=== PATIENT | female | born 1995 | race Caucasian/White ===

== ENCOUNTER 2024-10-23 05:38 | Inpatient (IN) ==
--- NOTE | 2024-10-09 11:23 | PAT Medication Instructions ---
Medication Instructions Date of Service October 09, 2024 Home Medications FVI-ykpm-IN-omega 3 fatty no.1 27 mg-1 mg-300 mg capsule 1 cap PO DAILY cetirizine 10 mg tablet (Zyrtec) 10 mg PO UD PRN allergies clindamycin phosphate 1 % lotion 1 applic topical UD PRN HS STOP taking 24 hours before surgery clindamycin phosphate 1 % lotion 1 applic topical UD PRN HS DO NOT take the morning of surgery BDA-mxow-PF-omega 3 fatty no.1 27 mg-1 mg-300 mg capsule 1 cap PO DAILY cetirizine 10 mg tablet (Zyrtec) 10 mg PO UD PRN allergies MORNING OF SURGERY: NOTHING TO EAT OR DRINK AFTER MIDNIGHT Other Notes If you have any questions please call us at [phone] or [phone] or [phone] or [phone]
--- NOTE | 2024-10-16 11:39 | Anesthesiology Consultation ---
Date of Service October 16, 2024 Assessment & Plan (1) Encounter for pre-operative examination: Exam & Advise: patient seen at [facility] 10/16/24. Patient presents today referred by OB for history of above anesthesia reaction and h/o thoracic spinal fusion T4- T12. Anesthesia and operative records are scanned to chart. Well-healed scar ends well above L4. Patient educated on spinal and we discussed previous anesthesia reaction which can occur in post-op, is not uncommon aftere c- sections. She expressed appreciation for discussion and denied questions or concerns. Case discussed in detail with Dr. Willis who advised nothing further is needed regarding reported post-op vigorous shaking. All questions answered. Johanna ent seems satisfied. Chart Review Chart Review: Acceptable Risk for Surgery and Patient seen in Pre Admission Testing Teaching & Discussion Pre-Anesthesia Teaching/Discussion Notes: Instructed NPO after midnight before surgery, except medications with 15 cc of water. Medication instructions provided according to the [facility] guidelines. History Surgery Operation Date: 10/23/24 07:30 Proposed Procedures p Section (Delivery of Baby Through Abdominal Incision) - Sahil Gracia MD Height/Weight Height: 5 ft 7 in Weight: 157.85 kg Allergies Allergy/AdvReac Type Severity Reaction Status Date / Time No Known Allergies Allergy Verified 10/16/24 10:01 Medications Home Medications Medication Instructions Recorded Confirmed Last Taken NZE-wtcr-CF-omega 3 fatty no.1 27 1 cap PO DAILY 04/01/24 10/16/24 09/15/24 mg-1 mg-300 mg capsule cetirizine 10 mg tablet (Zyrtec) 10 mg PO UD PRN allergies 10/09/24 10/16/24 Unknown clindamycin phosphate 1 % lotion 1 applic topical UD PRN HS 10/09/24 10/16/24 Unknown Past Medical History Medical History (Updated 10/20/24 @ 08:26 by Wen Joiner MD, FACOG) Bicornate uterus Enlarged thyroid monitored yearly Gestational HTN Hidradenitis suppurativa History of anesthesia reaction following T4-T12 fusion in 2019: vigorous shaking upon waking up-denies any alteration of consciousness-states was told was not concerning, patient personally denies concerns regarding this for upcoming procedure History of recurrent UTI (urinary tract infection) childhood/resolved. History of scoliosis hx sx intervention Hx of migraines Patient denies h/o stroke, seizures, heart attack, heart failure, DM, blood clots/DVTs or blood transfusions. Exercise / Class Metabolic Activity II 4-5 Yardwork/Stairs/Walk up hill (shortness of breath with one flight of stairs during , denies chest discomfort-denies change or worsening) Past Family History Family History Grandfather (Paternal) Colorectal cancer Mother Thyroid cancer Hypertension Grandmother (Paternal) Myocardial infarction Grandfather (Maternal) Myocardial infarction Grandmother (Maternal) Hypertension Denies family history of Ovarian cancer Prostate cancer Breast cancer Past Surgical History Surgical History S/P spinal fusion (08/2018) T4-T12, [facility]. Past Anesthesia History No Family Hx of Anesthesia Complications History of PONV No Hx of PONV and Hx of Motion Sickness Social History Smoking Status: Never smoker Do You Dip or Chew Tobacco: No Hx Alcohol Use: Yes (hx social only / not in ) Hx Substance Use: No substance use type: does not use Review of Systems Snoring, denies witnessed apneas. Patient denies chest pain, reflux, fever, chills, cough, wheezing, or palpitations. Physical Exam Vital Signs Vitals BP 130/82 P 88 TEMP 98.7 SP02 97% on RA RESP 18 Physical Patient resting comfortably in chair in no acute distress, alert and oriented, responding appropriately throughout visit Full cervical extension range of motion without pain TMD 3.5 finger breadths Mallampati Score 3 Dentition: intact, denies chipped or loose teeth, caps/crowns, implants or bridges Lungs: normal respiratory effort. Good air movement, clear throughout to auscultation, no adventitious breath sounds Cardiac: regular rate and rhythm, no murmurs noted Carotid arteries: negative bruit bilat Musculoskeletal: well healed linear surgical scar in thoracic region; nontender over spinous processes and paraspinal muscles Lab Results Anesthesia Preop Results Results Anesthesia Widget: WBC 8.32 K/ul (4.8-10.8) 10/16/24 Hgb 13.5 g/dl (12.0-16.0) 10/16/24 Hct 38.8 % (37.0-47.0) 10/16/24 Plt 172 K/uL (130-400) 10/16/24 Na 136 mmol/L (136-145) 10/16/24 K 4.0 mmol/L (3.5-5.1) 10/16/24 Cl 106 mmol/L (98-107) 10/16/24 CO2 23 mmol/L (21-32) 10/16/24 BUN 6 mg/dl (6-23) 10/16/24 Creat 0.47 mg/dl (0.6-1.2) L 10/16/24 Glucose Level 80 mg/dl (70-99(Fasting)) 10/16/24
[2024-10-23] MEDS ORDERED: SODIUM CHLORIDE 0.9% 100 ML IV PRN (05:43)
[2024-10-23 06:00] LABS: Hematocrit (blood only) 40.8 % (37.0-47.0); Hemoglobin 14.1 g/dl (12.0-16.0); Mean Corpuscular Hemoglobin 30.3 pg (25.0-34.0); Mean Corpuscular Volume 87.7 fL (80.0-100.0); Platelet Count 187 K/uL (130-400); RDW Standard Deviation 39.6 fL (36.4-46.3); Red Blood Count 4.65 M/uL (4.20-5.40); White Blood Count 8.33 K/ul (4.8-10.8)
[2024-10-23] MEDS: LACTATED RINGER'S 1,000 ML IV SCH (06:00)
[2024-10-23] MEDS ORDERED: LACTATED RINGER'S 1,000 ML IV SCH ×2 (06:45→11:30)
[2024-10-23] MEDS: ACETAMINOPHEN 500 MG TAB PO SCH (08:01)
--- NOTE | 2024-10-23 08:36 | History & Physical Report ---
Date of Service October 23, 2024 Assessment & Plan (1) Mild preeclampsia: Plan: Anahi is a 28yo at 37w5d GA. Presents for pLTCS for breech and preeclampsia. Consents reviewed and signed yesterday. (2) Breech presentation: (3) 37 weeks gestation of : (4) Supervision of normal first : Admission and Anticipated Discharge Date Admission Date: October 23, 2024 History of Present Illness Primary Care Provider: Luan Rudolph Anahi is a 28yo at 37w5d presents for scheduled pLTCS for breach with preeclampsia without severe features. Bicornuate Uterus *Cx length US Q2wks 16-24wks *Growth US Q4wks @ 28wks. Hx spinal fusion 2018 - anesthesia consult requested 09/26 Obesity (BMI 40 and higher @ beginning of )-->51 *Growth US @ 32wks *Weekly NSTs @ 34wks *BMI 40 or above offer delivery by EDC. *BMI 50 or greater scheduled detailed/level II anatomy at [facility] (06/20/24 @ [facility] [place]) Inability to view heart x2- Echo [facility] [place] [facility] 08/05/24 Preeclampsia, Gest HTN *Weekly BP chk's with Doc *Weekly CBC, LFTs *Growth US Q4wks *If IUGR: CHEL w/UAD's weekly *Deliver 37-38wks *(If Gestational HTN<28wks bring to [facility]) *Twice weekly NST's @Dx C/S SCHEDULED FOR 10/23/[address] DOLAN AND DR[address] MORAN ASSIST - breech + bicornate uterus Allergies Allergy/AdvReac Type Severity Reaction Status Date / Time No Known Allergies Allergy Verified 10/23/24 05:49 Home Medications Medication Instructions Recorded Confirmed Type DUD-ycue-JF-omega 3 fatty no.1 27 1 cap PO DAILY 04/01/24 10/23/24 History mg-1 mg-300 mg capsule cetirizine 10 mg tablet (Zyrtec) 10 mg PO UD PRN allergies 10/09/24 10/23/24 History clindamycin phosphate 1 % lotion 1 applic topical UD PRN HS 10/09/24 10/23/24 History Patient History Medical History (Updated 10/23/24 @ 08:34 by Sahil Dolan MD) History of anesthesia reaction following T4-T12 fusion in 2019: vigorous shaking upon waking up-denies any alteration of consciousness-states was told was not concerning, patient personally denies concerns regarding this for upcoming procedure History of scoliosis hx sx intervention Hidradenitis suppurativa History of recurrent UTI (urinary tract infection) childhood/resolved. Bicornate uterus Enlarged thyroid monitored yearly Gestational HTN Hx of migraines Surgical History S/P spinal fusion (08/2018) T4-T12, [facility]. Family History Grandfather (Paternal) Colorectal cancer Mother Thyroid cancer Hypertension Grandmother (Paternal) Myocardial infarction Grandfather (Maternal) Myocardial infarction Grandmother (Maternal) Hypertension Denies family history of Ovarian cancer Prostate cancer Breast cancer Social History Smoking Status: Never smoker Second Hand Exposure: No; Do You Dip or Chew Tobacco: No; Hx Alcohol Use: No Hx Substance Use: No Preferred Language: Jamaican Communication Ability: Effective Visual Impairment: No Limitations Process Improvement Consultant Required: No Beliefs That Will Affect Care: None marital status: marital status details: Sahil Pardo (28) [phone] Current Living Situation: Spouse Current Living Situation Comment: lives with spouse, dog current occupational status: employed current occupation: [employer] Other Information That Helps Us Care for You: No Feels Safe at Home: Yes Safety Concerns: Feels Safe At This Time Diet: regular Assistive Devices: Glasses Physical Exam Genitourinary: OB Exam Monitor Tracing: + external FHT monitor used, + external uterine monitor used, + category I and + normal FHT variability Results & Data Vital Signs (Past 12 Hours) Vital Signs Temp Pulse Resp BP 10/23/24 07:15 36.8 C 16 10/23/24 06:13 95 H 137/87 10/23/24 05:53 36.8 C 18 Coding Level of Care Code None Diagnoses Mild pre-eclampsia in third trimester O14.03 Trimester: third trimester Breech presentation, single or unspecified fetus O32.1XX0 Fetus number: single or unspecified fetus 37 weeks gestation of Z3A.37 Encounter for supervision of normal first in third trimester Z34.03 Trimester: third trimester (1) Mild preeclampsia Trimester: third trimester Qualified Code(s): O14.03 - Mild to moderate pre- eclampsia, third trimester (2) Breech presentation Fetus number: single or unspecified fetus Qualified Code(s): O32.1XX0 - Maternal care for breech presentation, not applicable or unspecified (4) Supervision of normal first Trimester: third trimester Qualified Code(s): Z34.03 - Encounter for supervision of normal first , third trimester
[2024-10-23] MEDS ORDERED: PHENYLEPHRINE HCL 25 MG/250 ML NSS IV ONE (08:46)
[2024-10-23] MEDS ORDERED: OXYTOCIN 10 UNITS/ML VIAL ONE (08:46)
[2024-10-23] MEDS ORDERED: ONDANSETRON INJ 2 MG/ML 2 ML VIAL ONE (08:46)
[2024-10-23] MEDS ORDERED: MoRPHine SULFATE PF 1 MG/ML 10 ML AMP/VIAL ONE (08:46)
[2024-10-23] MEDS: CITRIC ACID/SODIUM CITRATE 15 ML UDC PO SCH (10:22)
[2024-10-23] MEDS: ceFAZolin 3000MG 3,000 MG/72.5 ML BAG IV SCH (10:25)
[2024-10-23] MEDS ORDERED: HYDROmorphone INJ 0.5 MG/0.5 ML SYR IV PRN (11:06)
[2024-10-23] MEDS ORDERED: LACTATED RINGER'S 500 ML IV PRN (11:06)
[2024-10-23] MEDS ORDERED: diphenhydrAMINE 50 MG/ML VIAL IV PRN (11:06)
[2024-10-23] MEDS ORDERED: MEPERIDINE HCL 25 MG/ML CARP/VIAL IV PRN (11:06)
[2024-10-23] MEDS ORDERED: PROMETHAZINE 6.25 MG/50.25 ML BAG IV PRN (11:06)
[2024-10-23] MEDS ORDERED: ONDANSETRON INJ 2 MG/ML 2 ML VIAL IV PRN (11:06)
[2024-10-23] MEDS ORDERED: MoRPHine SULFATE 2 MG/ML CARP IV PRN (11:06)
[2024-10-23] MEDS ORDERED: NALOXONE HCL 1 MG in SODIUM CHLORIDE 0.9% 1,000 ML IV PRN (11:06)
[2024-10-23] MEDS ORDERED: NALOXONE HCL 0.4 MG/1 ML VIAL/CARP IV PRN (11:06)
[2024-10-23] MEDS ORDERED: NALBUPHINE HCL INJ 10 MG/ML AMP IV PRN (11:06)
[2024-10-23] MEDS ORDERED: MoRPHine SULFATE PF 1 MG/ML 10 ML AMP/VIAL INT SPINAL ONE (11:06)
[2024-10-23] MEDS ORDERED: NALOXONE HCL 0.08 MG in SYRINGE 1.8 ML IV PRN (11:06)
[2024-10-23] MEDS ORDERED: SODIUM CHLORIDE 0.9% 1,000 ML IV SCH (11:15)
[2024-10-23] MEDS ORDERED: NO NARCOTICS OR SEDATIVES SCH (11:15)
[2024-10-23] MEDS ORDERED: DC INTRASPINAL MORPHINE SCH (11:15)
[2024-10-23] MEDS ORDERED: HYDROCORTISONE ACETATE 25 MG SUPP PR PRN (11:30)
[2024-10-23] MEDS ORDERED: DIPHTHER/TETAN/PERTUS Vaccine (Tdap, Adol/Adult) 0.5mL IM ONE (11:30)
[2024-10-23] MEDS ORDERED: MAGNESIUM HYDROXIDE SUSP 30 ML UDC PO PRN (11:30)
[2024-10-23] MEDS ORDERED: CALCIUM CARBONATE 500 MG CHEWABLE TAB PO PRN (11:30)
[2024-10-23] MEDS ORDERED: BENZOCAINE 20% SPRY 85 APPLN/85 GM CAN EXT PRN (11:30)
[2024-10-23] MEDS ORDERED: SENNA 8.6 MG TAB PO PRN (11:30)
--- NOTE | 2024-10-23 11:34 | Operative Report ---
Post Operative Report Pre & Post Diagnosis Operation Date: 10/23/24 07:30 Pre-Op Diagnosis: 1. 37+ weeks Gestation of . 2. Mild preeclampsia: Plan: 3. Breech Presentation. 4. Scheduled C/S. Post-Op Diagnosis: 1. 37+ weeks Gestation of . 2. Mild preeclampsia: Plan: 3. Breech Presentation. 4. Scheduled C/S. 5. Delivery of Boy via C/S on 10/23/2024 at 1055 in L&D OR. 6. Delivery of Placenta. 7. Cord blood collected. I identified the patient and participated in the time-out.: Yes Procedure Operation Date: 10/23/24 07:30 Actual Procedures Primary low-transverse section- Sahil Gracia MD Surgeon Sahil Gracia MD Injection Mold Tooling Technician nursing staff Quantitative Blood Loss (QBL) See chart Findings Consistent with Post-Op Diagnosis Specimens Placenta Description of Procedure Patient was taken to the operating room after consents were ensured. Upon presentation she was identified. Spinal anesthesia obtained and patient was prepped and draped in the normal sterile fashion. Preprocedure timeout was performed and the case was initiated. A Pfannenstiel incision was made with a knife. This was carried down to underlying fascia with the Bovie and blunt diss ection. Fascia was nicked at the midline with a knife and was extended bluntly and with Lockhart scissors bilaterally. Abdomen was then entered bluntly and placed on stretch to provide adequate room for delivery. was noted to be in breech presentation as suspected and a low transverse uterine incision was made with a knife. The uterine cavity was then entered bluntly and placed on stretch to provide adequate room for delivery. The caudal end of the was delivered with internal rotation of the legs to achieve delivery. This was delivered to the level of the shoulder and internal rotation of the shoulder delivered to the level of the head. The head was then delivered without difficulty and was noted to be vigorous upon delivery. A 30 second delayed cord clamping was initiated. Cord was then double clamped and cut taken to the waiting nursery staff. Cord blood obtained and attention turned to deliver the placenta which delivered intact with gentle uterine massage and cord traction. Uterus was exteriorized and several passes made to remove any remaining membranes with a dry lap. Uterus was wrapped in a wet lap and the hysterotomy was reapproximated with 0 Vicryl in continuous running lock stitch. A second imbricating layer was then performed. The posterior cul-de-sac cleaned of clots and debris's. Hysterotomy was also noted to be hemostatic. Uterus returned to maternal abdomen and right left paracolic gutters cleaned of clots and debris's and hysterotomy reinspected. The muscle, fascia and subcutaneous layers were inspected and noted to be hemostatic. Fascia was reapproximated with 0 Vicryl in continuous running stitch. Subcutaneous layer reapproximated in 2 layers with 2-0 plain. Skin reapproximated 3-0 Vicryl in a subcuticular stitch. Dermabond placed on top. Needle sponge in instrument counts correct at the completion of the case. Both mother and stable in the immediate postdelivery timeframe. No complications noted and blood loss per QBL in chart. I attest to the content of the Intraoperative Record and any orders documented therein. Any exceptions are noted below. OB Procedure Charges 03021
[2024-10-23] MEDS: KETOROLAC 30 MG/ML VIAL IV SCH (12:07)
[2024-10-23] MEDS ORDERED: OXYTOCIN 20 UNITS/LR 1,002 ML IV SCH (12:15)
[2024-10-23] MEDS: SIMETHICONE 80 MG CHEW PO SCH (15:05)
--- NOTE | 2024-10-23 16:17 | Anesthesiology Progress Note ---
Date of Service October 23, 2024 Anesthesia Post Procedure Vital Signs Vital Signs: Temp Pulse Pulse Resp BP BP Pulse Ox 10/23/24 14:30 18 98 10/23/24 14:30 36.6 C 84 18 114/75 98 10/23/24 14:30 10/23/24 13:46 97 H 98 10/23/24 13:45 16 10/23/24 13:45 87 119/71 10/23/24 13:41 90 97 10/23/24 13:36 86 97 10/23/24 13:31 88 96 10/23/24 13:26 95 H 97 10/23/24 13:21 89 95 10/23/24 13:16 83 97 10/23/24 13:15 16 10/23/24 13:15 18 10/23/24 13:11 90 95 10/23/24 13:06 84 96 10/23/24 13:01 89 97 10/23/24 12:56 94 H 96 10/23/24 12:51 91 H 96 10/23/24 12:46 84 123/75 96 10/23/24 12:45 36.6 C 16 10/23/24 12:41 91 H 96 10/23/24 12:36 92 H 95 10/23/24 12:35 16 10/23/24 12:31 85 96 10/23/24 12:26 92 H 96 10/23/24 12:25 16 10/23/24 12:21 85 96 10/23/24 12:16 88 129/84 96 10/23/24 12:15 16 10/23/24 12:11 85 95 10/23/24 12:07 90 127/83 10/23/24 12:06 88 96 10/23/24 12:05 16 10/23/24 12:01 93 H 95 10/23/24 11:56 81 95 10/23/24 11:55 16 10/23/24 11:51 85 97 10/23/24 11:49 93 H 93 10/23/24 11:47 78 118/61 10/23/24 11:46 78 96 10/23/24 11:45 36.6 C 16 10/23/24 11:42 87 93 10/23/24 11:41 84 95 10/23/24 11:36 81 96 10/23/24 11:35 83 133/69 10/23/24 10:25 16 10/23/24 10:25 16 10/23/24 10:00 16 10/23/24 10:00 16 10/23/24 08:30 16 10/23/24 08:30 16 10/23/24 07:15 36.8 C 16 10/23/24 06:13 95 H 137/87 10/23/24 05:53 36.8 C 18 Pulse Ox O2 Del Method O2 Del Method 10/23/24 14:30 10/23/24 14:30 Room Air 10/23/24 14:30 98 Room Air 10/23/24 13:46 10/23/24 13:45 10/23/24 13:45 10/23/24 13:41 10/23/24 13:36 10/23/24 13:31 10/23/24 13:26 10/23/24 13:21 10/23/24 13:16 10/23/24 13:15 10/23/24 13:15 10/23/24 13:11 10/23/24 13:06 10/23/24 13:01 10/23/24 12:56 10/23/24 12:51 10/23/24 12:46 10/23/24 12:45 10/23/24 12:41 10/23/24 12:36 10/23/24 12:35 10/23/24 12:31 10/23/24 12:26 10/23/24 12:25 10/23/24 12:21 10/23/24 12:16 10/23/24 12:15 10/23/24 12:11 10/23/24 12:07 10/23/24 12:06 10/23/24 12:05 10/23/24 12:01 10/23/24 11:56 10/23/24 11:55 10/23/24 11:51 10/23/24 11:49 10/23/24 11:47 10/23/24 11:46 10/23/24 11:45 10/23/24 11:42 10/23/24 11:41 10/23/24 11:36 10/23/24 11:35 10/23/24 10:25 10/23/24 10:25 10/23/24 10:00 10/23/24 10:00 10/23/24 08:30 10/23/24 08:30 10/23/24 07:15 10/23/24 06:13 10/23/24 05:53 Pain Intensity Abdomen: Pain Intensity: 1 Transfer of Care Handoff Completed per policy Notes Mental Status: alert / awake / arousable Nausea / Vomiting: adequately controlled Pain: adequately controlled Airway Patency, RR, SpO2: stable & adequate BP & HR: stable & adequate Hydration State: stable & adequate Neuraxial Anesthesia: was administered and sensory block is resolving Anesthetic Complications: no major complications apparent and Pt Satisfied with anesthetic care
[2024-10-23] MEDS: ACETAMINOPHEN 325 MG TAB PO SCH (17:35)
[2024-10-23] MEDS: DOCUSATE SODIUM 100 MG CAP PO SCH (21:33)
[2024-10-23 23:52] VITALS: RESP 18
[2024-10-24] MEDS ORDERED: HYDROmorphone INJ 0.5 MG/0.5 ML SYR IV PRN (05:06)
[2024-10-24] MEDS ORDERED: diphenhydrAMINE 50 MG/ML VIAL IV PRN (05:06)
[2024-10-24] MEDS ORDERED: PROMETHAZINE 12.5 MG/50.5 ML BAG IV PRN (05:06)
[2024-10-24] MEDS ORDERED: ONDANSETRON INJ 2 MG/ML 2 ML VIAL IV PRN (05:06)
[2024-10-24] MEDS ORDERED: diphenhydrAMINE Capsule 25 MG CAP PO PRN (05:06)
--- NOTE | 2024-10-24 05:40 | Obstetrical Progress Note ---
Date of Service <Davidson Valdez MD - Last Filed: 10/24/24 08:12> October 24, 2024 Assessment & Plan <Davidson Valdez MD - Last Filed: 10/24/24 08:12> (1) care and examination: 28yo post-op day 1 s/p section Fells well today. Vital signs stable Continue post- care Encourage ambulation and Pain controlled with Tylenol, ketorlac Hgb stable Keep incision covered with peripad <Sahil Gracia MD - Last Filed: 10/27/24 11:20> (1) care and examination: Subjective <Davidson Valdez MD - Last Filed: 10/24/24 08:12> 28yo post-op day 1 s/p section Ambulation: Ambulating normally Voiding: No voiding problems Passing Gas:: Yes Diet Tolerance:: regular diet Lochia:: Small Feeding Type:: Current Pain Level: 2/10 controlled with Tylenol, Ketorlac Resting comfortably this AM in NAD. Denies IRAHETA, CP, SOB, N/V/D, LE pain/swelling. Physical Exam <Davidson Valdez MD - Last Filed: 10/24/24 08:12> General: patient resting comfortably, NAD, non-toxic in appearance, answers questions appropriately Skin: warm, dry, intact Heart: S1/S2 heard, regular, no m/r/g Lungs: equal air entry bilaterally, no rales/rhonchi/wheezes Abd: Normoactive BS, soft, NT/ND, uterine fundus firm at umbilicus, incision clean, dry, and intact with peripad cover Ext: warm, no clubbing/cyanosis or edema, Jigna's neg. SCDs on. Neuro: nonfocal, patient AAOx4, speech intact, no facial droop, moving all extremities on command Results & Data <Davidson Valdez MD - Last Filed: 10/24/24 08:12> Vital Signs (Past 12 Hours) Vital Signs Temp Pulse Resp BP Pulse Ox O2 Del Method 10/24/24 04:31 18 98 10/24/24 03:22 18 96 10/24/24 02:53 18 98 10/24/24 02:47 36.9 C 87 18 119/82 100 Room Air 10/24/24 02:37 18 92 10/24/24 02:00 18 93 10/24/24 01:00 18 92 10/23/24 23:52 18 94 10/23/24 23:03 36.9 C 89 16 115/77 97 Room Air 10/23/24 20:02 36.6 C 89 16 119/82 96 Room Air 10/23/24 18:30 18 96 Supervising Physician <Sahil Gracia MD - Last Filed: 10/27/24 11:20> Co-Signing Physician Notes Patient seen with resident and agree with the above findings and plan. Routine post care Resident Activity Tracking <Davidson Valdez MD - Last Filed: 10/24/24 08:12> Resident Involvement: Resident Care Provided Care Provided: OB Delivery
[2024-10-24 07:45] LABS: Hematocrit (blood only) 35.2 % (37.0-47.0); Hemoglobin 12.2 g/dl (12.0-16.0)
[2024-10-24] MEDS: PRENATAL VITAMIN 1 TAB PO SCH (09:00)
[2024-10-24] MEDS: FERROUS SULFATE 325 MG TAB PO SCH (09:00)
[2024-10-24] MEDS: IBUPROFEN 600 MG TAB PO SCH (11:26)
[2024-10-24] MEDS ORDERED: KETOROLAC 30 MG/ML VIAL IV PRN (11:30)
[2024-10-24] MEDS: NYSTATIN POWDER 15GM BTL EXT PRN (19:42)
[2024-10-25 00:51] VITALS: TEMP 98.1; O2SAT 97
--- NOTE | 2024-10-25 07:58 | Obstetrical Progress Note ---
Date of Service <Davidson Valdez MD - Last Filed: 10/25/24 07:58> October 25, 2024 Assessment & Plan <Davidson Valdez MD - Last Filed: 10/25/24 07:58> (1) care and examination: 28yo post-op day 1 s/p section Fells well today. Vital signs stable Continue post- care Encourage ambulation and Pain controlled with Tylenol, ibuprofen, and oxycodone Hgb stable Request nystatin powder to pharmacy D/c home and follow with OB provider in 6 weeks D/c instructions discussed <Indy Humphrey DO - Last Filed: 10/25/24 08:16> (1) care and examination: Subjective <Davidson Valdez MD - Last Filed: 10/25/24 07:58> 28yo post-op day 2 s/p section Ambulation: Ambulating normally Voiding: No voiding problems Passing Gas:: Yes Diet Tolerance:: regular diet Lochia:: Small Feeding Type:: and bottle feeding Current Pain Level: 4/10 controlled with Tylenol, ibuprofen, and oxycodone prn Resting comfortably this AM in NAD. Denies IRAHETA, CP, SOB, N/V/D, LE pain/swelling. Physical Exam <Davidson Valdez MD - Last Filed: 10/25/24 07:58> General: patient resting comfortably, NAD, non-toxic in appearance, answers questions appropriately Skin: warm, dry, intact Heart: S1/S2 heard, regular, no m/r/g Lungs: equal air entry bilaterally, no rales/rhonchi/wheezes Abd: Normoactive BS, soft, NT/ND, uterine fundus firm below umbilicus, incision clean, dry, and intact Ext: warm, no clubbing/cyanosis or edema, Jigna's neg. Neuro: nonfocal, patient AAOx4, speech intact, no facial droop, moving all extremities on command Results & Data <Davidson Valdez MD - Last Filed: 10/25/24 07:58> Vital Signs (Past 12 Hours) Vital Signs Temp Pulse Resp BP Pulse Ox O2 Del Method 10/25/24 00:00 36.7 C 88 18 124/85 97 Room Air Supervising Physician <Indy Humphrey DO - Last Filed: 10/25/24 08:16> Co-Signing Physician Notes Resident Physician Supervision Note: I interviewed and examined the patient. Discussed with Dr. Valdez and agree with findings and plan as documented in the note. Any exceptions or clarifications are listed here: POD#2 doing well. DC home. Rx Percocet #10 to pharmacy. Documented By: Indy Humphrey DO Resident Activity Tracking <Davidson Valdez MD - Last Filed: 10/25/24 07:58> Resident Involvement: Resident Care Provided Care Provided: OB Delivery
[2024-10-25 10:59] VITALS: PULSE 82
[2024-10-25] MEDS: IBUPROFEN 600 MG TAB PO PRN (11:07)
[2024-10-25 11:48] VITALS: BP 129/80
[2024-10-25] MEDS ORDERED: ACETAMINOPHEN 325 MG TAB PO PRN (17:30)
--- NOTE | 2024-10-28 09:14 | Discharge Summary ---
Date of Service October 28, 2024 Admission HPI Per Admitting Provider Anahi davies a 28yo at 37w5d presents for scheduled pLTCS for breach with preeclampsia without severe features. Bicornuate Uterus *Cx length US Q2wks 16-24wks *Growth US Q4wks @ 28wks. Hx spinal fusion 2018 - anesthesia consult requested 09/26 Obesity (BMI 40 and higher @ beginning of )-->51 *Growth US @ 32wks *Weekly NSTs @ 34wks *BMI 40 or above offer delivery by EDC. *BMI 50 or greater scheduled detailed/level II anatomy at [facility] (06/20/24 @ [facility] [place]) Inability to view heart x2- Echo [facility] [place] 08/05/24 Preeclampsia, Gest HTN *Weekly BP chk's with Doc *Weekly CBC, LFTs *Growth US Q4wks *If IUGR: CHEL w/UAD's weekly *Deliver 37-38wks *(If Gestational HTN<28wks bring to [facility]) *Twice weekly NST's @Dx C/S SCHEDULED FOR 10/23/[address] DOLAN AND DR[address] MORAN ASSIST - breech + bicornate uterus Discharge Data Consultations 10/23/24 05:42 Consult Anesthesiology Stat Procedures Performed Operation Date: 10/23/24 07:30 Actual Procedures p Section - Sahil Dolan MD Hospital Course (1) Breech presentation: Presented for a scheduled primary section secondary to breech presentation. Procedure was performed without issue and remained in house for care for day 2. Had no issues while during her course was discharged home in stable condition. Provided both written and verbal discharge instructions. (2) Gestational hypertension: (3) Supervision of normal first : Coding Level of Care Code None Diagnoses Breech presentation, single or unspecified fetus O32.1XX0 Fetus number: single or unspecified fetus Gestational hypertension O13.9 Encounter for supervision of normal first in third trimester Z34.03 Trimester: third trimester
== END 2024-10-25 11:15 | disposition home or self-care (01) | DRG 788 ==
LOC: 4S1 05:38 → EDSTATUS 07:30 → 4E2 14:04
DX: Z37.0 Single live birth; E66.9 Obesity, unspecified; Q51.3 Bicornate uterus; O34.83 Maternal care for other abnormalities of pelvic organs, third trimester; O32.1XX0 Maternal care for breech presentation, not applicable or unspecified; O99.214 Obesity complicating childbirth; O14.04 Mild to moderate pre-eclampsia, complicating childbirth; Z98.1 Arthrodesis status; Z3A.37 37 weeks gestation of pregnancy